=== PATIENT | male | born 1995 | race Caucasian/White ===

== ENCOUNTER 2017-11-27 00:12 | Emergency (ER) | payer SELFPAY ==
[2017-11-27 01:55] VITALS: BP 101/45; PULSE 69; TEMP 100.1; BMI 20.3
[2017-11-27] MEDS ORDERED: IBUPROFEN 100 MG/5 ML UNIT DOSE CUPS PO ONE (02:20)
--- NOTE | 2017-11-27 02:20 | PDOC ---
History of Present Illness - General Chief Complaint: Respiratory Stated Complaint: DIFFICULTY BREATHING/ASTHMA Time Seen by Provider: 11/27/17 02:13 History Source: Patient - History of Present Illness Initial Comments: 11/27/17 02:56 22 yea old male Complaining of throat pain, neck pain, low-grade temp. Reports that cousin had similar throat pain 2 days ago. Vomiting times one yesterday no vomiting today. Denies abdominal pain, urinary symptoms, chest pain Past History - Past Medical History Allergies/Adverse Reactions: Allergies Allergy/AdvReac Type Severity Reaction Status Date / Time No Known Allergies Allergy Verified 11/27/17 01:55 Asthma: Yes - Suicide/Smoking/Psychosocial Hx Smoking History: Never smoked Have you smoked in the past 12 months: No Information on smoking cessation initiated: No Hx Alcohol Use: No Drug/Substance Use Hx: No Review of Systems - Review of Systems Able to Perform ROS?: Yes Is the patient limited Citizen [place] proficient: No HEENTM: Yes: Throat Pain, Throat Swelling Respiratory: Yes: Cough, Wheezing. No: Symptoms reported, See HPI, Orthopnea, Shortness of Breath, SOB with Exertion, SOB at Rest, Stridor, Productive cough, Hemoptysis, Other Cardiac (ROS): No: Symptoms Reported, See HPI, Chest Pain, Edema, Irregular Heart Rate, Lightheadedness, Palpitations, Syncope, Chest Tightness, Other ABD/GI: No: Symptoms Reported, See HPI, Abdominal Distended, Abd. Pain w/ defecation, Blood Streaked Bowels, Constipated, Diarrhea, Difficulty Swallowing , Nausea, Poor Appetite, Poor Fluid Intake, Rectal Bleeding, Vomiting, Indigestion, Abdominal cramping, Tarry Stools, Other *Physical Exam - Vital Signs Last Vital Signs Temp Pulse Resp BP Pulse Ox 100.1 F H 69 18 101/45 11/27/17 01:50 11/27/17 01:50 11/27/17 01:50 11/27/17 01:50 - Physical Exam General Appearance: Yes: Appropriately Dressed HEENT: positive: Tonsillar Exudate, Tonsillar Erythema Neck: positive: Lymphadenopathy (R), Lymphadenopathy (L) Respiratory/Chest: positive: Rhonchi. negative: Chest Tender, Lungs Clear, Normal Breath Sounds, Respiratory Distress, Accessory Muscle Use, Labored Respiration, Rapid RR, Decreased Breath Sounds, Paradoxal Breathing, Crackles, Rales, Stridor, Wheezing, Hyperresonant, Dullness, Plerual Rub, Other Cardiovascular: positive: Regular Rhythm, Regular Rate Gastrointestinal/Abdominal: positive: Normal Bowel Sounds, Soft. negative: Tender *DC/Admit/Observation/Transfer Diagnosis at time of Disposition: Strep pharyngitis - Discharge Dispostion Disposition: HOME Condition at time of disposition: Fair - Referrals - Patient Instructions Printed Discharge Instructions: Strep Throat Additional Instructions: Take ibuprofen every 6 hours as needed for pain Drink plenty of fluids Throw away your toothbrush in 3-4 days Follow up with you doctor as soon as possible - Post Discharge Activity Forms/Work/School Notes: Back to Work
[2017-11-27] MEDS ORDERED: ALBUTEROL SO4 2.5/IPRATROPIUM 0.5 INH SOL 3 ML VIAL.NEB. NEB ONE (02:24)
[2017-11-27] MEDS ORDERED: IBUPROFEN 100 MG/5 ML UNIT DOSE CUPS ONE (02:32)
[2017-11-27] MEDS ORDERED: PENICILLIN G BENZATHINE 1,200,000 UNIT/2 ML PFS IM ONE (02:48)
[2017-11-27] MEDS ORDERED: DEXAMETHASONE 4 MG TABLET (FP) PO ONE (03:00)
[2017-11-27] MEDS ORDERED: DEXAMETHASONE SOD PHOSPHATE 10 MG/1 ML VIAL ONE (03:13)
[2017-11-27] MEDS ORDERED: PENICILLIN G BENZATHINE 2,400,000 UNIT/4 ML PFS ONE (03:14)
== END 2017-11-27 03:40 | disposition home or self-care (01) ==
LOC: JER 00:12
PROC: 3E02329 Introduction of Other Anti-infective into Muscle, Percutaneous Approach (ICD-10-PCS; principal; 2017-11-27)
PROC: 3E0F7GC Introduction of Other Therapeutic Substance into Respiratory Tract, Via Natural or Artificial Opening (ICD-10-PCS; 2017-11-27)
DX: J02.0 Streptococcal pharyngitis (principal); B95.0 Streptococcus, group A, as the cause of diseases classified elsewhere; J45.909 Unspecified asthma, uncomplicated
CPT/HCPCS: 87070; 87077; 87430; 99281-25; J7620

== ENCOUNTER 2022-03-22 23:09 | Emergency (ER) | payer SELFPAY ==
[2022-03-22 23:14] VITALS: BP 133/90; PULSE 50; RESP 18; TEMP 98.1; BMI 21.1
[2022-03-23] MEDS ORDERED: IBUPROFEN 400 MG TABLET (FP) PO ONE ×2 (00:05→00:25)
[2022-03-23] MEDS ORDERED: LIDOCAINE 5% TOPICAL PATCH TP ONE (00:11)
[2022-03-23] MEDS ORDERED: LIDOCAINE 5% TOPICAL PATCH ONE (00:25)
== END 2022-03-23 01:58 | disposition home or self-care (01) ==
LOC: JER 23:09
DX: R07.9 Chest pain, unspecified (principal)
CPT/HCPCS: 71046-TC-FY; 93005; 93010; 99284-25